=== PATIENT | male | born 1980 | race Caucasian/White ===

== ENCOUNTER 2018-09-01 15:56 | Emergency (ER) | payer MEDICARE, MEDICAID ==
[~2018-09-01] VITALS: Ht 167.6 cm; Wt 154.0 kg
[2018-09-01] MEDS ORDERED: KETOROLAC 30 MG/1 ML ONE (16:24)
[2018-09-01] MEDS ORDERED: METHOCARBAMOL 750 MG TABLET ONE (16:24)
[2018-09-01] MEDS ORDERED: KETOROLAC 30 MG/1 ML IM ONE (16:30)
[2018-09-01] MEDS ORDERED: METHOCARBAMOL 750 MG TABLET PO ONE (16:30)
[2018-09-01] MEDS ORDERED: DIPHENHYDRAMINE 25 MG CAPSULE ONE (17:15)
[2018-09-01] MEDS ORDERED: DIPHENHYDRAMINE 25 MG CAPSULE PO ONE (17:30)
[2018-09-01 18:02] VITALS: BP 139/86
== END 2018-09-01 18:35 | disposition home or self-care (01) ==
LOC: ED 17:08
DX: G89.11 Acute pain due to trauma (principal); M54.5 Low back pain; G89.29 Other chronic pain; M54.16 Radiculopathy, lumbar region; E11.9 Type 2 diabetes mellitus without complications; Z88.5 Allergy status to narcotic agent
CPT/HCPCS: 96372; 99284; J1885; J7512; Q0163